=== PATIENT | male | born 1970 | race Caucasian/White ===

== ENCOUNTER 2017-03-25 06:58 | Emergency (ER) | payer MEDICAID ==
[2017-03-25 07:05] VITALS: RESP 16; O2SAT 97
[2017-03-25] MEDS ORDERED: KETOROLAC 30 MG/1 ML SDV IVP ONE (07:23)
[2017-03-25] MEDS ORDERED: NS 1,000 ML IV ONE (07:23)
[2017-03-25] MEDS ORDERED: ONDANSETRON 4 MG/2 ML VIAL IVP ONE (07:23)
--- NOTE | 2017-03-25 07:26 | EDPHY ---
H & P Time Seen by Provider: 03/25/17 07:18 HPI/ROS: CHIEF COMPLAINT: Left lower back pain/left flank pain HISTORY OF PRESENT ILLNESS: Patient is a 46-year-old male with a history of kidney stones and previous low back pain who presents emergency department with new onset left flank/left low back pain since early this morning. He woke from sleep around 6:00 a.m. with this "sharp" pain. It does not radiate into his abdomen, groin or testicle. He has had nausea with no vomiting. No reported fevers or chills. It is not worse with movement. No lower extremity weakness or numbness. No incontinence of urine or stool. This is different from his previous low back pain. He had an MRI in June. REVIEW OF SYSTEMS: My complete review of systems is negative except as mentioned in the HPI. Past Medical/Surgical History: Kidney Stone, low back pain Past surgical history: Kidney stone retrieval Social history: The patient smokes. Smoking Status: Light smoker Physical Exam: Vitals noted GENERAL: Mild acute distress, alert. HEENT: Eyes normal to inspection, normal pharynx, no signs of dehydration. NECK: No thyromegaly, no lymphadenopathy, supple. RESPIRATORY: Clear to auscultation bilaterally, no rales, rhonchi or wheezing. CVS: Regular rate and rhythm, no rubs, murmurs, or gallops. ABDOMEN: Soft, nontender, nondistended, no organomegaly. Benign. BACK: Normal to inspection, no CVA tenderness. No spinal tenderness. No flank tenderness. SKIN: Normal color, no rash, warm, dry. No pallor. EXTREMITIES: No pedal edema, no calf tenderness, no Homans sign or cords, no joint swelling. NEURO/PSYCH: [Alert and oriented x3, normal mood and affect, normal motor sensory exam. Constitutional: Initial Vital Signs Temperature (C) 36.9 C 03/25/17 07:00 Heart Rate 63 03/25/17 07:00 Respiratory Rate 16 03/25/17 07:00 Blood Pressure 180/107 H 03/25/17 07:00 O2 Sat (%) 97 03/25/17 07:00 O2 Delivery Mode Room Air Allergies/Adverse Reactions: No Known Allergies Allergy (Verified 06/04/16 10:00) Home Medications: Medication Instructions Recorded Cephalexin [Keflex (*)] 500 mg PO QID 7 Days 03/25/17 Ibuprofen 600 mg PO TID 15 Days 03/25/17 Tamsulosin HCl [Flomax] 0.4 mg PO DAILY #4 cap 03/25/17 Medical Decision Making - Diagnostics Imaging Results: Imaging Impressions Abdomen/Pelvis CT 03/25/17 07:23 Impression: 1. 2 x 2 by 4 mm calculus in the proximal to mid left ureter results in mild left hydronephrosis. 2. Minimal sigmoid diverticulosis. 3. No intra-abdominal mass, lymphadenopathy or free fluid. Findings discussed with Emergency Department physician, TINO HADLEY at 8:03. Attention: This CT examination is specifically designed to evaluate patients who are clinically suspected of having acute obstructive uropathy. This examination does not use radiographic contrast, and as such, provides only a limited evaluation of the abdomen, pelvis and retroperitoneum. If there is further clinical suspicion for pathological conditions other than obstructive uropathy, a complete CT evaluation of the abdomen and pelvis utilizing intravenous, oral, and rectal contrast should be considered. ED Course/Re-evaluation: In the emergency department I discussed possible etiologies with the patient. I answered all his questions. IV was placed. Patient was given normal saline 1 L IV for hydration. He was given Toradol 30 mg IV for pain control. He was given Zofran 4 mg IV for nausea. Laboratory studies and CT were ordered. CT of the abdomen pelvis: Please refer the dictated report by Dr. Negro Baeza. The patient has a left mid ureteral stone that is 2 x 4. There is mild hydronephrosis. Patient's CBC and chemistry were unremarkable. The patient's urine showed numerous red cells and 10-15 white cells. I rechecked the patient. He was feeling much better. He did not want any further pain medication. I discussed his results. I answered all his questions. He is aware he needs close follow-up with Urology. He will be given a prescription for ibuprofen and Flomax. He will stay well-hydrated. He was given a dose of Rocephin 1 g IV due to the white cells in his urine. He will be given a prescription of Keflex. He was given warnings prior to leaving. He will return with worsening symptoms. Differential Diagnosis: My differential includes but is not limited to kidney stone, flank pain, urinary tract infection, pyelonephritis, aortic aneurysm, aortic dissection, small-bowel obstruction, perforation, diverticulitis, diverticulosis - Data Points Laboratory Results: Laboratory Results 03/25/17 07:20 03/25/17 07:20 03/25/17 03/25/17 03/25/17 07:27 07:20 07:20 WBC 9.77 10^3/uL H 10^3/uL (3.80-9.50) RBC 5.44 10^6/uL 10^6/uL (4.40-6.38) Hgb 16.5 g/dL g/dL (13.7-17.5) Hct 49.0 % % (40.0-51.0) MCV 90.1 fL fL (81.5-99.8) MCH 30.3 pg pg (27.9-34.1) MCHC 33.7 g/dL g/dL (32.4-36.7) RDW 13.2 % % (11.5-15.2) Plt Count 241 10^3/uL 10^3/uL (150-400) MPV 9.7 fL fL (8.7-11.7) Neut % (Auto) 54.0 % % (39.3-74.2) Lymph % (Auto) 31.5 % % (15.0-45.0) Rhea % (Auto) 6.0 % % (4.5-13.0) Eos % (Auto) 7.8 % H % (0.6-7.6) Baso % (Auto) 0.5 % % (0.3-1.7) Nucleat RBC Rel Count 0.0 % % (0.0-0.2) Absolute Neuts (auto) 5.27 10^3/uL 10^3/uL (1.70-6.50) Absolute Lymphs (auto) 3.08 10^3/uL H 10^3/uL (1.00-3.00) Absolute Monos (auto) 0.59 10^3/uL 10^3/uL (0.30-0.80) Absolute Eos (auto) 0.76 10^3/uL H 10^3/uL (0.03-0.40) Absolute Basos (auto) 0.05 10^3/uL 10^3/uL (0.02-0.10) Absolute Nucleated RBC 0.00 10^3/uL 10^3/uL (0-0.01) Immature Gran % 0.2 % % (0.0-1.1) Immature Gran # 0.02 10^3/uL 10^3/uL (0.00-0.10) Sodium 144 mEq/L mEq/L (134-144) Potassium 3.8 mEq/L mEq/L (3.5-5.2) Chloride 105 mEq/L mEq/L (97-110) Carbon Dioxide 25 mEq/l mEq/l (22-31) Anion Gap 14 mEq/L mEq/L (8-16) BUN 10 mg/dL mg/dL (7-23) Creatinine 1.0 mg/dL mg/dL (0.7-1.3) Estimated GFR > 60 Glucose 124 mg/dL H mg/dL (70-100) Calcium 9.6 mg/dL mg/dL (8.5-10.4) Urine Color YELLOW Urine Appearance HAZY Urine pH 5.0 (5.0-7.5) Ur Specific Welch 1.021 (1.002-1.030) Urine Protein 2+ H (NEGATIVE) Urine Ketones NEGATIVE (NEGATIVE) Urine Blood 3+ H (NEGATIVE) Urine Nitrate NEGATIVE (NEGATIVE) Urine Bilirubin NEGATIVE (NEGATIVE) Urine Urobilinogen NEGATIVE EU EU (0.2-1.0) Ur Leukocyte Esterase NEGATIVE (NEGATIVE) Urine RBC 50-182 /hpf H /hpf (0-3) Urine WBC 10-15 /hpf H /hpf (0-3) Ur Epithelial Cells TRACE /lpf /lpf (NONE-1+) Urine Bacteria TRACE /hpf H /hpf (NONE SEEN) Urine Mucus 2+ /lpf H /lpf (NONE-1+) Urine Glucose NEGATIVE (NEGATIVE) Medications Given: Discontinued Medications Sodium Chloride (Ns) 1,000 mls @ 0 mls/hr IV ONCE ONE; Wide Open PRN Reason: Protocol Stop: 03/25/17 07:24 Last Admin: 03/25/17 07:25 Dose: 1,000 mls Ceftriaxone Sodium/Dextrose (Rocephin 1 Gm (Premix)) 50 mls @ 100 mls/hr IV EDNOW ONE PRN Reason: Protocol Stop: 03/25/17 08:34 Last Admin: 03/25/17 08:19 Dose: 50 mls Ketorolac Tromethamine (Toradol) 30 mg IVP EDNOW ONE Stop: 03/25/17 07:24 Last Admin: 03/25/17 07:26 Dose: 30 mg Ondansetron HCl (Zofran) 4 mg IVP EDNOW ONE Stop: 03/25/17 07:24 Last Admin: 03/25/17 07:26 Dose: 4 mg Tamsulosin HCl (Flomax) 0.4 mg PO EDNOW ONE Stop: 03/25/17 08:04 Last Admin: 03/25/17 08:19 Dose: 0.4 mg Departure - Departure Disposition: Home, Routine, Self-Care Clinical Impression: Acute left flank pain, Kidney stone on left side Condition: Good Instructions: Kidney Stones (ED), Flank Pain (ED) Additional Instructions: You need close follow-up with Urology. Your were found to have a mid ureteral stone on the left side that is 2 mm x 4 mm in length. You been given Flomax and ibuprofen for pain. You were given Keflex for possible infection. Return with increasing pain, fever, vomiting, or any other concerns. Referrals: MARIAELENA MOTA [Primary Care Provider] - 1-2 days without fail Neo Blas MD [Medical Doctor] - As per Instructions Prescriptions: Cephalexin [Keflex (*)] 500 mg PO QID 7 Days Ibuprofen 600 mg PO TID 15 Days Tamsulosin HCl [Flomax] 0.4 mg PO DAILY #4 cap
[2017-03-25 07:29] LABS: % IMMATURE GRANULYOCYTES 0.2 % (0.0-1.1); ABSOLUTE IMMATURE GRANULOCYTES 0.02 10^3/uL (0.00-0.10); ADD DIFF? NO; ADD MORPH? NO; ADD SCAN? NO; ATYPICAL LYMPHOCYTE FLAG 0 (0-99); FRAGMENT RBC FLAG 0 (0-99); HEMOGLOBIN 16.5 g/dL (13.7-17.5); LEFT SHIFT FLG 0 (0-99); LIPEMIA HEMOLYSIS FLAG 80 (0-99); MEAN CELL HEMOGLOBIN 30.3 pg (27.9-34.1); MEAN CELL HEMOGLOBIN CONCENTR. 33.7 g/dL (32.4-36.7); MEAN CELL VOLUME 90.1 fL (81.5-99.8); MEAN PLATELET VOLUME 9.7 fL (8.7-11.7); PLATELET CLUMPS FLAG 0 (0-99); PLATELET COUNT 241 10^3/uL (150-400); RED BLOOD CELL COUNT 5.44 10^6/uL (4.40-6.38); RED CELL DISTRIBUTION WIDTH 13.2 % (11.5-15.2)
[2017-03-25 07:43] LABS: COLOR YELLOW; LEUKOCYTE ESTERASE,URINE NEGATIVE (NEGATIVE); NITRITE,URINE NEGATIVE (NEGATIVE)
[2017-03-25 07:55] LABS: BACTERIA TRACE /hpf (NONE SEEN); MUCUS 2+ /lpf (NONE-1+); RBC,URINE 50-182 /hpf (0-3)
[2017-03-25 07:56] LABS: ANION GAP 14 mEq/L (8-16); CALCIUM 9.6 mg/dL (8.5-10.4); CARBON DIOXIDE 25 mEq/l (22-31); CHLORIDE 105 mEq/L (97-110); GLOMERULAR FILTRATION RATE > 60; GLUCOSE 124 mg/dL (70-100); POTASSIUM 3.8 mEq/L (3.5-5.2); SODIUM 144 mEq/L (134-144)
[2017-03-25] MEDS ORDERED: TAMSULOSIN HCL 0.4 MG CAP PO ONE (08:03)
[2017-03-25 08:58] VITALS: BP 142/95; PULSE 68; TEMP 97.7
== END 2017-03-25 08:57 | disposition home or self-care (01) ==
DX: N20.0 Calculus of kidney (principal); F17.200 Nicotine dependence, unspecified, uncomplicated
CPT/HCPCS: 96365; J0696; J1885; J2405

== ENCOUNTER 2018-11-14 15:48 | Emergency (ER) | payer MEDICAID ==
[2018-11-14 15:54] VITALS: BP 182/117
[2018-11-14] MEDS ORDERED: FLUORESCEIN SODIUM 1 MG STRIP OP ONE ×2 (16:08→16:09)
[2018-11-14] MEDS ORDERED: PROPARACAINE 0.5% 15 ML OPHT DROP ONE (16:09)
[2018-11-14] MEDS ORDERED: PROPARACAINE 0.5% 15 ML OPHT DROP OP ONE (16:09)
[2018-11-14] MEDS ORDERED: OFLOXACIN 0.3% SOLN PREPACK OPHT.BTL TAKEHOME ONE (16:27)
--- NOTE | 2018-11-14 16:27 | EDPHY ---
H & P Stated Complaint: Left eye injury Time Seen by Provider: 11/14/18 15:58 HPI/ROS: Chief Complaint: Left eye injury HPI: The patient presents to the ED with complaints of acute left eye pain after he was poked in the left eye by finger prior to arrival. The patient does not were contact lenses. He does report associated blurry vision. He denies additional acute complaints. REVIEW OF SYSTEMS: Neuro: no headache, numbness, weakness ENT: As above Ocular: As above Skin: no abrasion or lacerations Source: Patient - Personal History Current Tetanus/Diphtheria Vaccine: Yes Tetanus Vaccine Date: 2013 - Medical/Surgical History Hx Asthma: No Hx Chronic Respiratory Disease: No Hx Diabetes: No Hx Cardiac Disease: No Hx Renal Disease: No Hx Cirrhosis: No Hx Alcoholism: No Hx HIV/AIDS: No Hx Splenectomy or Spleen Trauma: No Other PMH: chronic back pain since initial injury 1989. Hx kidney stones, HTN - Social History Smoking Status: Light smoker - Physical Exam Exam: Visual Acuity: noted from Nurse's notes. Pupils: equal round and reactive to light EOMI Skin: no proptosis, no periorbital erythema or swelling, no vesicles Conjunctivae: not injected, no discharge Cornea: [exam with fluorescein shows a corneal abrasion noted at the mid cornea on the left eye. Negative Andrei sign. Anterior chamber: normal, no hyphema or hypopyon Constitutional: Initial Vital Signs Temperature (C) 36.8 C 11/14/18 15:52 Heart Rate 80 11/14/18 15:52 Respiratory Rate 18 11/14/18 15:52 Blood Pressure 182/117 H 11/14/18 15:52 O2 Sat (%) 97 11/14/18 15:52 O2 Delivery Mode Room Air Allergies/Adverse Reactions: No Known Allergies Allergy (Verified 11/14/18 15:54) Home Medications: Medication Instructions Recorded Cephalexin [Keflex (*)] 500 mg PO QID 7 Days cap 03/25/17 Ibuprofen 600 mg PO TID 15 Days tablet 03/25/17 Tamsulosin HCl [Flomax] 0.4 mg PO DAILY #4 cap 03/25/17 Medical Decision Making ED Course/Re-evaluation: Patient has a corneal abrasion noted in the emergency department. The patient will be started on Ocuflox eyedrops. He has been advised to follow up with the on-call gambreler for a recheck this week. He is discharged home with customary aftercare instructions and return precautions. Differential Diagnosis: Differential diagnosis considered includes corneal abrasion, corneal ulcer, globe injury - Data Points Medications Given: Discontinued Medications Fluorescein Sodium (Bioglo) 1 mg OP EDNOW ONE Stop: 11/14/18 16:10 Last Admin: 11/14/18 16:11 Dose: 1 mg Proparacaine HCl (Alcaine 0.5%) 1 drops OP EDNOW ONE Stop: 11/14/18 16:10 Last Admin: 11/14/18 16:10 Dose: 1 btl Departure - Departure Disposition: Home, Routine, Self-Care Clinical Impression: Corneal abrasion Qualifiers: Encounter type: initial encounter Laterality: left Qualified Code(s): S05.02XA - Injury of conjunctiva and corneal abrasion without foreign body, left eye, initial encounter Condition: Good Instructions: Corneal Abrasion (ED), Ofloxacin (Into the eye) Additional Instructions: 1. Antibiotic eye drop to left eye 5 times a day for the next week. 2. Please schedule a follow-up appointment with the gambreler you have been referred to for recheck next week. 3. Tylenol and ibuprofen as needed for pain. Referrals: aJi Disla MD [Medical Doctor] - As per Instructions
== END 2018-11-14 16:37 | disposition home or self-care (01) ==
DX: S05.02XA Injury of conjunctiva and corneal abrasion without foreign body, left eye, initial encounter (principal); W22.8XXA Striking against or struck by other objects, initial encounter; F17.200 Nicotine dependence, unspecified, uncomplicated; I10 Essential (primary) hypertension; Z87.442 Personal history of urinary calculi